=== PATIENT | female | born 1970 | race Caucasian/White ===

== ENCOUNTER → 2017-02-11 | Outpatient (CLI) | payer OTHER ==
[2016-05-18 11:46] VITALS: BP 129/81
--- NOTE | 2017-02-11 17:37 | RAD ---
HISTORY: Abdominal pain for 1 week Study: KUB Comparison: None Findings: Evaluation of the abdomen demonstrates a normal bowel gas pattern. No pathological soft tissue mass or calcification can be observed. The bony structures are grossly intact. IMPRESSION: 1. No evidence for acute abdominal pathology identified. Reported By:
== END ==
LOC: RAD 16:47
PROVIDERS: ATTEND Nurse Practitioner Family
DX: R10.11 Right upper quadrant pain (principal); R10.33 Periumbilical pain; R11.0 Nausea; K59.09 Other constipation
CPT/HCPCS: 74000

== ENCOUNTER → 2017-02-22 | Outpatient (CLI) | payer OTHER ==
[2016-05-18 11:46] VITALS: BP 129/81
--- NOTE | 2017-02-22 12:01 | NM ---
Examination: Nuclear medicine hepatobiliary scan with gallbladder ejection fraction. Clinical History: Right upper quadrant pain, nausea. Technique: Following the intravenous administration of 5.3 millicuries of 99 m technetium Choletec, multiple serial spot scintiphotos of the upper abdomen were obtained. The patient was then given 8 o z of Ensure Plus orally and additional serial spot scintiphotos of the upper abdomen were obtained a nd the gallbladder ejection fraction calculated. Comparison: None available. Findings: There is normal physiologic uptake of the radiopharmaceutical by the liver. The gallbladder is visua lized at 15 minutes and the small bowel is visualized after 1 hour. Following the oral administration of Ensure Plus, the gallbladder ejection fraction was calculated a t 17.5%, which is below the normal expected ejection fraction of more than 35%. The findings are con sistent with gallbladder dyskinesia/chronic cholecystitis. Impression: Decreased gallbladder ejection fraction calculated at 17.5%, which is below the normal expected ejec tion fraction of more than 35%. Findings are consistent with gallbladder dyskinesia/chronic cholecys titis. Reported By:
== END ==
LOC: RAD 09:02
PROVIDERS: ATTEND Nurse Practitioner Family
DX: R10.11 Right upper quadrant pain (principal); R11.0 Nausea
CPT/HCPCS: 78227

== ENCOUNTER 2017-03-27 07:17 | Day surgery (SDC) | payer OTHER ==
[2017-03-27] MEDS ORDERED: NS 50 ML IV + SPIKE MINIBAG* 100 ML IV ONE (07:26)
[2017-03-27] MEDS ORDERED: LR 1000 ML IV 1,000 ML IV ONE (07:26)
[2017-03-27] MEDS ORDERED: ANCEF VIAL 1 GM ONE (07:27)
[2017-03-27 07:57] LABS: BASOPHILS # (AUTO) 0.1 X10^3/uL (0.0-0.1); EOSINOPHILS # (AUTO) 0.2 x10^3/uL (0.0-0.2); EOSINOPHILS % (AUTO) 2.2 % (0.9-2.9); HEMATOCRIT 39.4 % (36.0-47.0); HEMOGLOBIN 13.3 g/dL (12.0-16.0); LYMPHOCYTES # (AUTO) 1.7 X10^3/uL (1.3-2.9); LYMPHOCYTES % (AUTO) 23.9 % (21.0-51.0); MEAN CORPUSCULAR HEMOGLOBIN 27.4 pg (27.0-34.0); MEAN CORPUSCULAR HGB CONC 33.8 g/dL (33.0-35.0); MEAN CORPUSCULAR VOLUME 80.9 fL (80.0-100.0); MEAN PLATELET VOLUME 8.9 fL (7.4-11.0); MONOCYTES # (AUTO) 0.5 x10^3/uL (0.3-0.8); MONOCYTES % (AUTO) 6.4 % (0.0-13.0); NEUTROPHILS # (AUTO) 4.7 x10^3/uL (2.2-4.8); NEUTROPHILS % (AUTO) 66.5 % (42.0-75.0); PLATELET COUNT 348 X10^3/uL (150.0-450.0); RED BLOOD COUNT 4.87 X10^6/uL (3.5-5.4); RED CELL DISTRIBUTION WIDTH 14.6 % (11.6-16.5); WHITE BLOOD COUNT 7.1 X10^3/uL (3.6-10.0)
[2017-03-27 08:06] LABS: ALANINE AMINOTRANSFERASE 25 Units/L (12-78); ALBUMIN 3.6 g/dL (3.4-5.0); ALKALINE PHOSPHATASE 91 Units/L (46-116); ASPARTATE AMINO TRANSFERASE 17 Units/L (15-37); BLOOD UREA NITROGEN 13 mg/dL (7-18); CALCIUM 8.7 mg/dL (8.5-10.1); CARBON DIOXIDE 28.6 mmol/L (21-32); CHLORIDE 105 mmol/L (98-107); CREATININE 0.98 mg/dL (0.55-1.02); SODIUM 140 mmol/L (136-145); TOTAL PROTEIN 7.2 g/dL (6.4-8.2); eGFR BLACK RACES > 60 (>60); eGFR NON BLACK RACES > 60 (>60)
[2017-03-27] MEDS ORDERED: FENTANYL INJ 250 mcg ONE (08:12)
[2017-03-27] MEDS ORDERED: XYLOCAINE 1 % (PLAIN) ONE (08:38)
[2017-03-27] MEDS ORDERED: MARCAINE/EPINEPHRINE ONE (08:38)
[2017-03-27] MEDS ORDERED: NS IRRIGATION 1000 ML 1,000 ML IR ONE (08:57)
[2017-03-27] MEDS ORDERED: PHENERGAN INJ 25 MG IVP PRN (09:53)
[2017-03-27] MEDS ORDERED: BENADRYL INJ 50 MG VIAL IVP PRN (09:53)
[2017-03-27] MEDS ORDERED: ZOFRAN INJ 4 MG VIAL IVP PRN (09:53)
[2017-03-27] MEDS ORDERED: REGLAN INJ 10 MG VIAL IVP PRN (09:53)
[2017-03-27] MEDS ORDERED: PERCOCET TAB 5/325 MG PO PRN (10:00)
--- NOTE | 2017-03-27 10:00 | OR.GENERIC ---
Post-Op Note Generic - Post-Op Note Operative Report: Operative Report Date of Operation: March 27, 2017 Pre-Operative Diagnosis: Biliary dyskinesia. Post-Operative Diagnosis: 1. Mild chronic cholecystitis. 2. Biliary dyskinesia. Procedure: Laparoscopic cholecystectomy. Surgeon: Wilbert Peralta MD. Carpentry Teacher: Francisco Javier Conde CRNA. Specimen: Gallbladder. Estimated blood loss: Minimal. Complications: None. Summary: The patient is a 46 year old female who presented with biliary dyskinesia. The patient was offered cholecystectomy. The risk and benefits of the procedure including difficulty with anesthesia, bleeding, infection, conversion to open procedure, bile leak, hernia formation, DVT, as well as PE were discussed with the patient. The patient understood these risks and requested the procedure. On March 27, 2017, the patient was brought to the operative theatre. A time out was performed verifying the patient and procedure. The patient received Ancef for pre-operative antibiosis. After satisfactory induction of general endotracheal anesthesia, the abdomen was prepped with Chloraprep and draped in the usual sterile fashion. The skin and subcutaneous tissue at the inferior aspect of the umbilicus was anesthetized using local anesthetic. The skin was incised sharply. A 12 mm trocar was placed though the incision and into the peritoneal cavity using the Denzel technique. Carbon dioxide was infiltrated through this trocar to obtain a pneumoperitoneum of 15 mm Hg. A camera was placed through this trocar and swept in all directions. No injury was seen from entering the peritoneal cavity. A site was selected in the subxiphoid location for our 2nd trocar. The skin and fascia was anesthetized using local anesthetic. The skin was incised sharply. A 5 mm trocar was placed into the peritoneal cavity under direct visualization. In a similar manner, two additional 5 mm trocars were placed. The first was placed in the mid- clavicular line approximately 2 fingerbreadths inferior to the left costal margin and a second in the anterior axillary line approximately 2 fingerbreadths inferior to the left costal margin. The patient was placed in reverse Trendelenburg and rotated to the patients left. The gallbladder was grasped at the fundus and elevated cephalad and slightly lateral. The peritoneum on the medial and lateral aspects of the infundibulum of the gallbladder was scored using hook electrocautery. Using blunt dissection, the cystic artery and duct were isolated. The critical view of safety was obtained. Both of these structures were divided between endoclips. The gallbladder was dissected free using hook electrocautery. The gallbladder was placed in an endobag and removed through the umbilical trocar site without difficulty. The trocar and camera were placed back inside the abdomen. Our clips were noted in good position. Bleeding of the gallbladder fossa was controlled using electrocautery. At this point, the 5 mm trocars were removed under direct visualization. No bleeding was seen. The umbilical trocar was then removed and pneumoperitoneum released. The fascia at the umbilicus was closed using a 0-Vicryl placed in a [id number] configuration x 2. The skin edges at all incisions were re-approximated using inverted, interrupted 4- 0 Monocryl sutures. Benzoin and Steri-strips were placed. Sterile dressings were placed. The patient was awakened and taken to the recovery room in stable condition. There were no complications. All counts were correct.
[2017-03-27] MEDS: DILAUDID INJ IVP PRN ×3 (10:08→10:18)
[2017-03-27] MEDS ORDERED: PHENERGAN INJ 25 MG ONE (10:46)
[2017-03-27] MEDS ORDERED: ZOFRAN INJ 4 MG VIAL ONE ×2 (10:47→13:51)
[2017-03-27 11:46] VITALS: BP 148/74
[2017-03-27] MEDS ORDERED: NORCURON INJ 10 MG VIAL ONE (13:51)
[2017-03-27] MEDS ORDERED: SUPRANE IN ONE (13:51)
[2017-03-27] MEDS ORDERED: LTA KIT LIDOCAINE 4% ONE (13:51)
[2017-03-27] MEDS ORDERED: VERSED ONE (13:51)
[2017-03-27] MEDS ORDERED: XYLOCAINE 2 % (PLAIN) ONE (13:51)
[2017-03-27] MEDS ORDERED: QUELICIN (OR ANECTINE) ONE (13:51)
[2017-03-27] MEDS ORDERED: ROBINUL ONE (13:51)
[2017-03-27] MEDS ORDERED: NEOSTIGMINE INJ ONE (13:51)
== END 2017-03-27 12:00 | disposition home or self-care (01) ==
LOC: SURG1 07:17
PROVIDERS: ATTEND Student in an Organized Health Care Education/Training Program
PROC: 0FT44ZZ Resection of Gallbladder, Percutaneous Endoscopic Approach (ICD-10-PCS; principal; 2017-03-27 08:30)
DX: K82.8 Other specified diseases of gallbladder (principal); K81.0 Acute cholecystitis
CPT/HCPCS: 36415; 80053; 85025; A4216; A4222; S0020; J0330; J0690; J1170; J2001; J2250; J2405; J2550; J2710; J3010; J3490; J7120